=== PATIENT | female | born 1955 | race Caucasian/White ===

== ENCOUNTER 2018-03-06 16:08 | Inpatient (IN) | payer BC ==
[~2018-03-06] VITALS: Ht 165.1 cm; Wt 54.4 kg
[2018-03-06] MEDS ORDERED: [UNRECOGNIZED DRUG - OTHER] PO (16:14)
[2018-03-06] MEDS ORDERED: BUDESONIDE EC3 MG PO (16:14)
[2018-03-06] MEDS ORDERED: ASA81 MG PO (16:15)
[2018-03-06] MEDS ORDERED: FAMCICLOVIR125 MG PO (16:15)
[2018-03-11] MEDS ORDERED: RAMIPRIL5 MG PO (18:19)
== END 2018-03-29 11:03 | disposition home or self-care (01) | DRG 330 ==
LOC: ER 16:08 → SURG 23:08
PROVIDERS: ADMIT Surgery
PROC: BW21ZZZ Computerized Tomography (CT Scan) of Abdomen and Pelvis (ICD-10-PCS; 2018-03-06)
PROC: 0DH67UZ Insertion of Feeding Device into Stomach, Via Natural or Artificial Opening (ICD-10-PCS; 2018-03-06)
PROC: 3E0G76Z Introduction of Nutritional Substance into Upper GI, Via Natural or Artificial Opening (ICD-10-PCS; 2018-03-06)
PROC: 0DTF0ZZ Resection of Right Large Intestine, Open Approach (ICD-10-PCS; principal; 2018-03-07 12:00)
PROC: 02HV33Z Insertion of Infusion Device into Superior Vena Cava, Percutaneous Approach (ICD-10-PCS; 2018-03-19)
PROC: B54NZZZ Ultrasonography of Left Upper Extremity Veins (ICD-10-PCS; 2018-03-21)
DX: K56.690 Other partial intestinal obstruction (principal); J90 Pleural effusion, not elsewhere classified; T80.211A Bloodstream infection due to central venous catheter, initial encounter; K91.89 Other postprocedural complications and disorders of digestive system; I82.A12 Acute embolism and thrombosis of left axillary vein; I82.612 Acute embolism and thrombosis of superficial veins of left upper extremity; K56.2 Volvulus; K56.7 Ileus, unspecified; R50.82 Postprocedural fever; E10.43 Type 1 diabetes mellitus with diabetic autonomic (poly)neuropathy; K31.84 Gastroparesis; K80.80 Other cholelithiasis without obstruction; E10.9 Type 1 diabetes mellitus without complications; E03.8 Other specified hypothyroidism; K57.30 Diverticulosis of large intestine without perforation or abscess without bleeding; D64.89 Other specified anemias; I10 Essential (primary) hypertension; Z79.4 Long term (current) use of insulin; Z96.41 Presence of insulin pump (external) (internal)